=== PATIENT | female | born 1990 | race Caucasian/White ===

== ENCOUNTER 2019-01-05 12:02 | Emergency (ER) | payer OTHER ==
[2019-01-05 12:16] VITALS: BP 110/78; PULSE 76; RESP 16; TEMP 97.9
--- NOTE | 2019-01-05 13:26 | ED ---
Psych HPI - General Chief Complaint: Psychiatric Symptoms Stated Complaint: Mental Health Time Seen by Provider: 01/05/19 12:05 Source: patient, EMS, RN notes reviewed Mode of arrival: EMS - History of Present Illness Initial Comments: This a 28-year-old female presents emergency department via EMS from [facility] for psychiatric evaluation. Patient reportedly was throwing objects. She does admit to the states that she was upset. Patient is autistic. She has no physical complaints denies abdominal pain, chest pain, headache or dizziness. Patient does have bruising on her right arm but states that she bites herself. Patient denies being suicidal or homicidal - Related Data Home Medications Medication Instructions Recorded Confirmed ARIPiprazole [Abilify] 5 mg PO DAILY 01/05/19 01/05/19 Ergocalciferol [Vitamin D2 50,000 unit PO Q7D 01/05/19 01/05/19 (DRISDOL)] Norgestimate-Ethinyl Estradiol 1 tab PO DAILY 01/05/19 01/05/19 [Sprintec 28 Day Tablet] cloNIDine HCL [Catapres] 0.1 mg PO TID 01/05/19 01/05/19 risperiDONE [RisperDAL] 4 mg PO HS 01/05/19 01/05/19 Allergies Allergy/AdvReac Type Severity Reaction Status Date / Time No Known Allergies Allergy Unverified 01/05/19 12:18 Review of Systems ROS Statement: Those systems with pertinent positive or pertinent negative responses have been documented in the HPI. ROS Other: All systems not noted in ROS Statement are negative. Past Medical History Past Medical History: No Reported History History of Any Multi-Drug Resistant Organisms: None Reported Past Surgical History: No Surgical Hx Reported Past Psychological History: Unable to Obtain Smoking Status: Never smoker Past Alcohol Use History: None Reported Past Drug Use History: None Reported General Exam Limitations: no limitations, language barrier General appearance: alert, in no apparent distress Head exam: Present: atraumatic, normocephalic, normal inspection Eye exam: Present: normal appearance, PERRL, EOMI. Absent: scleral icterus, conjunctival injection, periorbital swelling ENT exam: Present: normal exam, normal oropharynx, mucous membranes moist Neck exam: Present: normal inspection, full ROM. Absent: tenderness, meningismus, lymphadenopathy Respiratory exam: Present: normal lung sounds bilaterally. Absent: respiratory distress, wheezes, rales, rhonchi, stridor Cardiovascular Exam: Present: regular rate, normal rhythm, normal heart sounds. Absent: systolic murmur, diastolic murmur, rubs, gallop, clicks Extremities exam: Present: other (Bruising noted to the right forearm) Neurological exam: Present: alert, oriented X3 Psychiatric exam: Present: normal affect, normal mood Skin exam: Present: warm, dry, intact, normal color. Absent: rash Course Vital Signs 01/05/19 12:10 Temperature 97.9 F Pulse Rate 76 Respiratory 16 Rate Blood Pressure 110/78 O2 Sat by Pulse 99 Oximetry Medical Decision Making - Medical Decision Making 28-year-old female presented for psychiatric evaluation. Patient was evaluated by EPS, mobile crisis unit and discussed the case with psychiatrist [facility] Patient had an anger outburst. Disposition Clinical Impression: Adjustment reaction Disposition: HOME SELF-CARE Condition: Stable Instructions (If sedation given, give patient instructions): Mood Disorders (ED) Additional Instructions: Please return to the Emergency Department if symptoms worsen or any other concerns. Is patient prescribed a controlled substance at d/c from ED?: No Referrals: Aram Jama MD [Primary Care Provider] - 1-2 days Time of Disposition: 15:08
== END 2019-01-05 15:30 | disposition home or self-care (01) ==
LOC: EC 12:02 → SUPCPDRO 12:02 → EC 15:30
DX: F43.20 Adjustment disorder, unspecified (principal); S50.11XA Contusion of right forearm, initial encounter; Z79.899 Other long term (current) drug therapy
CPT/HCPCS: 82075; 99284

== ENCOUNTER → 2023-09-28 | Outpatient (CLI) | payer OTHER ==
[2023-09-28 10:24] LABS: Basophils # (A) 0.04 X 10*3/uL (0.00-0.10); Basophils % (A) 0.7 %; Eosinophils # (A) 0.03 X 10*3/uL (0.04-0.35); Eosinophils % (A) 0.5 %; HCT 39.7 % (37.2-46.3); Lymphocytes # (A) 1.31 X 10*3/uL (0.90-5.00); Lymphocytes % (A) 22.2 %; MCHC 32.7 g/dL (32.0-37.0); MCV 91.7 FL (80.0-97.0); Mean Platelet Volume 11.7 FL (9.5-12.2); Monocytes # (A) 0.53 X 10*3/uL (0.20-1.00); NRBC Per 100 WBC 0 X 10*3/uL (0.00-0.01); Neutrophils # (A) 3.99 X 10*3/uL (1.80-7.70); Neutrophils % (A) 67.4 %; Platelet Count 165 X 10*3/uL (140-440); RBC 4.33 X 10*6/uL (4.10-5.20); RDW 12.5 % (11.5-14.5); WBC 5.91 X 10*3/uL (4.50-10.00)
[2023-09-28 10:59] LABS: ALT 18 U/L (8-44); AST 16 U/L (13-35); Albumin 3.7 g/dL (3.8-4.9); Albumin/Globulin Ratio 1.37 Ratio (1.60-3.17); Alkaline Phosphatase 50 U/L (41-126); Bilirubin, Conjugated <0.20 mg/dL (0.20-0.40); Bilirubin,Unconjugated >0.30 mg/dL (0.20-1.00); Blood Urea Nitrogen 15.2 mg/dL (9.0-27.0); Calcium 9.1 mg/dL (8.7-10.3); Carbon Dioxide 22.3 mmol/L (21.6-31.8); Chloride 107 mmol/L (96-109); Chol/HDL Ratio 1.86 Ratio; Globulin 2.7 g/dL (1.6-3.3); Glucose 89 mg/dL (70-110); LDL Cholesterol,Calculated 47.5 mg/dL (0.0-131.0); Potassium 4.3 mmol/L (3.5-5.5); Sodium 139 mmol/L (135-145); T4, Free (Free Thyroxine) 1.18 ng/dL (0.80-1.80); Total Bilirubin 0.5 mg/dL (0.3-1.2); Total Protein 6.4 g/dL (6.2-8.2); VLDL Calculation 6.72 mg/dL (5.00-40.00)
== END | disposition home or self-care (01) ==
LOC: LABWHC1 07:34
PROVIDERS: ATTEND Psychiatry & Neurology Psychiatry
DX: Z51.81 Encounter for therapeutic drug level monitoring (principal); Z79.899 Other long term (current) drug therapy
CPT/HCPCS: 36415; 80053; 80061; 82248; 82306; 82607; 82746; 83036; 84439; 84443; 85025